=== PATIENT | female | born 1940 | race Hispanic/Latino ===

== ENCOUNTER 2018-11-29 11:23 | Emergency (ER) | payer MEDICARE ==
[2018-11-29 11:59] LABS: BASOPHILS % (AUTO) 0.7 % (0.0-5.0); EOSINOPHILS % (AUTO) 2.1 % (0.0-8.0); HEMATOCRIT 41.6 % (36-48); LYMPHOCYTES % (AUTO) 32.5 % (21.0-51.0); MEAN CORPUSCULAR HEMOGLOBIN 31.2 pg (27.0-33.0); MEAN CORPUSCULAR HGB CONC 33.5 g/dL (32.0-36.0); MEAN CORPUSCULAR VOLUME 93.2 fL (79-99); NEUTROPHILS % (AUTO) 56.7 % (40.0-77.0); NUCLEATED RED BLOOD CELLS 0.1 % (0.0-0.19); PLATELET COUNT (AUTO) 152 K/uL (130-400); RED BLOOD CELL COUNT(AUTO) 4.46 MIL/uL (4.00-5.50); RED CELL DISTRIBUTION WIDTH 12.6 % (11.0-15.5); WHITE BLOOD COUNT (AUTO) 6.2 K/uL (4.8-10.8)
[2018-11-29 12:14] LABS: INR 1.01 (0.85-1.15); PARTIAL THROMBOPLASTIN TIME 26.5 SEC (26.3-35.5); PROTHROMBIN TIME 10.6 SEC (9.6-11.6)
[2018-11-29 12:16] LABS: ALBUMIN 4.1 g/dL (3.5-5.0); BILIRUBIN,DIRECT 0.1 mg/dL (0.0-0.3); BILIRUBIN,TOTAL 0.5 mg/dL (0.2-1.0); POTASSIUM 3.6 mmol/L (3.5-5.1); TOTAL PROTEIN, SERUM 8.3 g/dL (6.0-8.3)
[2018-11-29] MEDS ORDERED: SODIUM CHLORIDE 0.9% 500ML 500 ML IV ONE (12:19)
[2018-11-29 12:26] LABS: APPEARANCE,URINE Clear (CLEAR); BILIRUBIN,URINE Negative (NEGATIVE); COLOR,URINE Yellow (YELLOW); GLUCOSE, URINE (UA) Negative (NEGATIVE); KETONES,URINE Negative (NEGATIVE); LEUKOCYTE ESTERASE ,URINE Moderate (NEGATIVE); NITRATE,URINE Negative (NEGATIVE); OCCULT BLOOD,URINE Negative (NEGATIVE); PH,URINE >=9.0 (5.0-8.0); PROTEIN,URINE POS 2+ mg/dL (NEGATIVE)
[2018-11-29 12:36] LABS: B-TYPE NATRIURETIC PEPTIDE 60 pg/mL (0-100)
[2018-11-29 12:41] LABS: BACTERIA,URINE Rare /HPF (None Seen); RBC,URINE 0-1 /HPF (0-1); SQUAMOUS EPITHELIAL CELL,UR 0-2 /HPF (0-2)
== END 2018-11-29 14:20 | disposition home or self-care (01) ==
LOC: EDH 11:23
DX: E86.0 Dehydration (principal); F41.1 Generalized anxiety disorder; R53.1 Weakness; E11.9 Type 2 diabetes mellitus without complications; E78.5 Hyperlipidemia, unspecified; I10 Essential (primary) hypertension
CPT/HCPCS: 36415; 71045; 80048; 80076; 81001; 82550; 83690; 83880; 84484; 85025; 85610; 85730; 87804 ×2; 93005; 96360; 96361; 99285; J7040

== ENCOUNTER 2024-01-21 12:35 | Emergency (ER) | payer MEDICARE ==
[~2024-01-21] VITALS: Ht 134.6 cm; Wt 72.6 kg
--- NOTE | 2024-01-21 12:51 | ERN ---
General Chief Complaint: FOOT INJURY/PAIN Stated Complaint: FOOT PAIN Time Seen by MD: 12:37 History of Present Illness Initial Comments 83-year-old female who presents for right ankle injury. Patient broke her right ankle and had a surgery two months ago by Dr. Hernandez at [facility]. She is currently on antibiotics for possible infection of that right ankle surgery site. Today she misstepped and twisted her ankle. She did have a fall that was controlled down to the right knee. He did not hit her head or have any other injuries. She has some right knee pain and some right anterior ankle pain. No deformity, neurovascularly intact. No other injuries or complaints. Allergies: Coded Allergies: No Known Drug Allergies (Unverified Allergy, Unknown, 01/21/24) Home Meds Reported Medications Amlodipine Besylate (Amlodipine Besylate) 5 Mg Tablet, 1 TAB PO DAILY for 30 Days, #30 TAB 0 Refills 01/21/24 Losartan Potassium (Losartan Potassium) 100 Mg Tablet, 1 TAB PO DAILY for 30 Days, #30 TAB 0 Refills 01/21/24 Pregabalin (Pregabalin) 50 Mg Capsule, 1 CAP PO BID MDD 2 Capsule(s) for 30 Days, #60 CAP 0 Refills 01/21/24 Docusate Sodium (Stool Softener) 50 Mg Capsule, 1 CAP PO DAILY for constipation for 30 Days, #30 CAP 0 Refills 01/21/24 Citalopram Hydrobromide (Citalopram HBr) 10 Mg Tablet, 1 TAB PO DAILY for 30 Days, #30 TAB 0 Refills 01/21/24 Rosuvastatin Calcium (Rosuvastatin Calcium) 5 Mg Tablet, 5 MG PO HS, TAB 01/21/24 Dapagliflozin/Metformin HCl (Xigduo Xr 10 mg-1,000 mg Tab) 10 Mg-1,000 Mg Tab.bp.24h, 1 TAB PO DAILY for diabetes for 30 Days, #30 TAB 0 Refills 01/21/24 Pioglitazone HCl (Pioglitazone HCl) 15 Mg Tablet, 1 TAB PO DAILY for 30 Days, #30 TAB 0 Refills 01/21/24 Past Medical History Past Medical History: Diabetes-Type II, High Cholesterol, Hypertension Past Surgical History: Other Surgical History Other: RT ANKLE SX, BILAT KNEE SX ROS Dictation CONSTITUTIONAL: No chills, no fever, no weakness, no diaphoresis, no malaise. HEAD/FACE: No signs of trauma. EENT: No eye pain, no blurred vision, no tearing, no double vision, no ear pain, no ear discharge, no nose pain, no nasal congestion, no throat pain, no throat swelling, no mouth pain. RESPIRATORY: No cough, no orthopnea, no SOB, no stridor, no wheezing. CARDIOVASCULAR: No chest pain, no edema, no palpitations, no syncope. GASTROINTESTINAL/ABDOMINAL: No abdominal pain, no constipation, no diarrhea, no nausea, no vomiting. GENITOURINARY: No abnormal discharge, no dysuria, no frequent urination, no hematuria. No complaints of pain in the genitals. MUSCULOSKELETAL: Has right ankle pain, right knee pain INTEGUMENTARY: No change in color, no change in hair/nails, no dryness, no lesion, no lumps, no rash. NEUROLOGICAL/PSYCH: No anxiety, not depressed, no emotional problem, no headache, no numbness, no pre-existing deficit, no history of seizures, no tremors, no weakness. HEMATOLOGIC/LYMPHATIC: Not anemic, no history of blood clots, no apparent bleeding, no bruising, glands not swollen. All Systems Negative, Except as Noted. Physical Exam Physical Exam Dictation VITAL SIGNS: Reviewed. GENERAL APPEARANCE: Alert, oriented x3, no acute distress, obese. HEAD AND FACE: Non-traumatic. EYES: PERRL, pink conjunctivas, eyelid no trauma, anterior chamber clear. EARS: Pinnas intact and no signs of trauma or erythema. Ear canals clear and no discharge. TMs no erythema. NOSE: No discharge, no bleeding. OROPHARYNX: Mouth normal, teeth no caries, tongue pink. Pharynx clear, no eryt jarrod. Tonsils no exudates, no abscesses noted. Mucous membrane moist. NECK: Supple, non-tender, no thyromegaly, no masses, no JVD, no bruits. BREAST: Deferred. CHEST: No tenderness, no crepitus, no paradoxical movement, no retractions. LUNGS: Clear, well-ventilated, symmetric, no rales, no wheezing, no rhonchi, no stridor, good breath sounds bilaterally. HEART: Regular rate, regular rhythm, no murmur, no gallops. VASCULAR: No peripheral edema. ABDOMEN: Soft, positive bowel sounds, nondistended, no guarding, nontender, no rebound, no masses no hepatomegaly, no splenomegaly, no Mars's sign, no hernias. RECTAL: Deferred. GENITAL: Deferred. NEUROLOGICAL: Normal speech, gross motor function intact, gross sensory function intact. MUSCULOSKELETAL: Neck nontender, full range of motion, back nontender, full range of motion. EXTREMITIES: Nontender, full range of motion. SKIN: Color pink, dry, no turgor, no rash, no lacerations, no abrasions, no contusions. LYMPHATICS: Deferred. Results Laboratory and Microbiology Lab and Micro Result Laboratory Tests Test 01/21/24 13:01 White Blood Count 5.4 K/uL (4.8-10.8) Red Blood Count 3.55 MIL/uL (4.00-5.50) L Hemoglobin 10.9 g/dL (12.0-16.0) L Hematocrit 33.7 % (36-48) L Mean Corpuscular Volume 94.9 fL (79-99) Mean Corpuscular Hemoglobin 30.7 pg (27.0-33.0) Mean Corpuscular Hemoglobin Concent 32.3 g/dL (32.0-36.0) Red Cell Distribution Width 12.9 % (11.0-15.5) Platelet Count 199 K/uL (130-400) Mean Platelet Volume 11.2 fL (7.5-10.5) H Immature Granulocyte % (Auto) 0.4 % (0-1) Neutrophils (%) (Auto) 52.2 % (40.0-77.0) Lymphocytes (%) (Auto) 27.2 % (21.0-51.0) Monocytes (%) (Auto) 14.2 % (3.0-13.0) H Eosinophils (%) (Auto) 5.4 % (0.0-8.0) Basophils (%) (Auto) 0.6 % (0.0-5.0) Neutrophils # (Auto) 2.8 K/uL (1.8-7.7) Lymphocytes # (Auto) 1.5 K/uL (1.0-4.8) Monocytes # (Auto) 0.8 K/uL (0.1-1.0) Eosinophils # (Auto) 0.29 K/uL (0.00-0.70) Basophils # (Auto) 0.03 K/uL (0.00-0.20) Absolute Immature Granulocyte (auto 0.02 K/uL (0-1) Nucleated Red Blood Cells 0.0 % (0.0-0.19) Erythrocyte Sedimentation Rate 45 MM/HR (0-30) H Sodium Level 137 mmol/L (136-145) Potassium Level 3.7 mmol/L (3.5-5.1) Chloride Level 103 mmol/L (101-111) Carbon Dioxide Level 26 mmol/L (21-32) Blood Urea Nitrogen 15 mg/dL (7-18) Creatinine 1.7 mg/dL (0.5-1.0) H Glomerular Filtration Rate Calc 29 mL/min (>90) Random Glucose 124 mg/dL (70-105) H Total Calcium 9.2 mg/dL (8.5-10.1) C-Reactive Protein, Quantitative 10.30 mg/L (0.5-3.0) H ED Course Orders Procedure Category Date Status Time Ankle Comp 3vws Rt RAD 01/21/24 Resulted 12:42 Knee 3vws Rt RAD 01/21/24 Resulted 12:42 Cbc With Differential LAB 01/21/24 Complete 12:42 Basic Metabolic Panel LAB 01/21/24 Complete 12:42 Crp Quantitative LAB 01/21/24 Complete 12:42 Erythrocyte LAB 01/21/24 Complete Sedimentation Rate 12:42 Ketorolac PHA 01/21/24 Complete Tromethamine 15mg/Ml 13:30 Hydrocodone/Apap PHA 01/21/24 Complete 5/325 ([place] 5/325mg) 13:30 Current Medications Medications (Trade) Dose Ordered Sig/Shaka Route PRN Reason Start Time Stop Time Status Last Admin Dose Admin Acetaminophen/ Hydrocodone Bitart (NORco 5/325MG) 1 tab ONCE ONCE PO 01/21/24 13:30 01/21/24 13:31 DC 01/21/24 13:39 Ketorolac Tromethamine (toRADol) 15 mg ONCE ONCE IV 01/21/24 13:30 01/21/24 13:31 DC 01/21/24 13:39 Vital Signs Date Time Temp Pulse Resp B/P (MAP) Pulse Ox O2 Delivery O2 Flow Rate FiO2 01/21/24 13:31 98.8 78 20 117/53 98 Room Air* 0 21 01/21/24 12:37 97.9 88 16 120/56 96 Room Air 0 DX & DISP Disposition: Discharge Departure Impression: Primary Impression: Right ankle injury Condition: Stable Additional Instructions: There are no new injuries to your ankle or knee today. The x-rays show the hardware in place. There are no new fractures or injuries. As we discussed, the wound appears to be healing. Please continue with the antibiotics that you are already prescribed. Your lab work ( CBC, BMP, CRP, ESR) show mild elevation of your inflammatory markers, but are otherwise unremarkable. You can take 1000 mg of Tylenol up to 4 times a day as needed for pain. You could also take 600 mg of ibuprofen up to 4 times a day as needed for pain. Alternate these medications every 4 hours if needed. Do not bear weight on your leg until you have been cleared by Dr. Hernandez. Keep your leg elevated as much as possible. You can also apply ice for swelling. Please refer to the emergency department if you have any concerns. Otherwise follow up with Dr. Hernandez as an outpatient. Referrals: CONCHITA DAVIS (PCP) VANESA ALVAREZ DO Jan 21, 2024 12:51
[2024-01-21 13:35] LABS: BASOPHILS # (AUTO) 0.03 K/uL (0.00-0.20); BASOPHILS % (AUTO) 0.6 % (0.0-5.0); EOSINOPHILS # (AUTO) 0.29 K/uL (0.00-0.70); EOSINOPHILS % (AUTO) 5.4 % (0.0-8.0); HEMATOCRIT 33.7 % (36-48); IMMATURE GRANULOCYTE ABSOLUTE 0.02 K/uL (0-1); LYMPHOCYTES # (AUTO) 1.5 K/uL (1.0-4.8); LYMPHOCYTES % (AUTO) 27.2 % (21.0-51.0); MEAN CORPUSCULAR HEMOGLOBIN 30.7 pg (27.0-33.0); MEAN CORPUSCULAR HGB CONC 32.3 g/dL (32.0-36.0); MEAN CORPUSCULAR VOLUME 94.9 fL (79-99); MONOCYTES # (AUTO) 0.8 K/uL (0.1-1.0); MONOCYTES % (AUTO) 14.2 % (3.0-13.0); NEUTROPHILS # (AUTO) 2.8 K/uL (1.8-7.7); NEUTROPHILS % (AUTO) 52.2 % (40.0-77.0); PLATELET COUNT (AUTO) 199 K/uL (130-400); RED BLOOD CELL COUNT(AUTO) 3.55 MIL/uL (4.00-5.50); RED CELL DISTRIBUTION WIDTH 12.9 % (11.0-15.5); WHITE BLOOD COUNT (AUTO) 5.4 K/uL (4.8-10.8)
[2024-01-21] MEDS: HYDROcodone/APAP 5/325 1 TAB TABLET PO ONE (13:39)
[2024-01-21] MEDS: ketOROlac 15MG/ML VIAL (15MG/ML) IV ONE (13:39)
[2024-01-21 13:43] LABS: CREATININE 1.7 mg/dL (0.5-1.0); POTASSIUM 3.7 mmol/L (3.5-5.1)
[2024-01-21] MEDS ORDERED: PIOG15TA66 PO (13:58)
[2024-01-21] MEDS ORDERED: LOSA100T59 PO (13:58)
[2024-01-21] MEDS ORDERED: CITA10TA89 PO (13:58)
[2024-01-21] MEDS ORDERED: DAPA1TAB5 PO (13:58)
[2024-01-21] MEDS ORDERED: ROSU5TAB51 PO (13:58)
[2024-01-21] MEDS ORDERED: AMLO-257 PO (13:58)
[2024-01-21] MEDS ORDERED: PREG50CA64 PO (13:58)
[2024-01-21] MEDS ORDERED: DOCU50CA13 PO (13:58)
--- NOTE | 2024-01-21 14:02 | HMCIMG ---
ANKLE COMP 3VWS RT INDICATION: injury, recent surgery TECHNIQUE: ANKLE COMP 3VWS RT. FINDINGS/IMPRESSION: 3 orthopedic screws are seen in the posterior calcaneus. There is diffuse soft tissue swelling Degenerative changes are noted. There is diffuse osteopenia limiting evaluation of the study.
--- NOTE | 2024-01-21 14:05 | HMCIMG ---
KNEE 3VWS RT INDICATION: injury, recent surgery TECHNIQUE: KNEE 3VWS RT. FINDINGS/IMPRESSION: No displaced fracture or dislocation is seen. Correlate clinically. There is diffuse soft tissue swelling Knee prosthesis in anatomic alignment. There is diffuse osteopenia limiting evaluation of the study.
[2024-01-21 14:47] LABS: ERYTHROCYTE SEDIMENTATION RATE 45 MM/HR (0-30)
[2024-01-21 15:24] VITALS: BP 119/59; PULSE 78; RESP 18; TEMP 98.2; O2SAT 97
== END 2024-01-21 15:27 | disposition home or self-care (01) ==
LOC: EDH 12:35
DX: S99.911A Unspecified injury of right ankle, initial encounter (principal); E11.9 Type 2 diabetes mellitus without complications; E78.00 Pure hypercholesterolemia, unspecified; I10 Essential (primary) hypertension; Z79.84 Long term (current) use of oral hypoglycemic drugs; Z79.899 Other long term (current) drug therapy; Z96.651 Presence of right artificial knee joint; X50.1XXA Overexertion from prolonged static or awkward postures, initial encounter; Y93.89 Activity, other specified; Y92.89 Other specified places as the place of occurrence of the external cause; Y99.8 Other external cause status
CPT/HCPCS: 99284; 96374; 80048; 85025; 85651; 86140; 36415; 73610; 73562; J1885